=== PATIENT | female | born 1940 | race Caucasian/White ===

== ENCOUNTER → 2016-08-11 | Outpatient (CLI) | payer MEDICARE, BC ==
[~2016-08-11] MED LIST: ALEVE 220MG220 MG PO; ASPIRIN 81M81 MG/TA2 PO; HORIZANT600 MG PO; HYGROTON 2525 MG/TAB PO; MONOPRIL20 MG PO; NEURONTIN100 MG/CAP PO; NEURONTIN400 MG/CAP PO; NEXIUM 20MG20 MG PO; PAMELOR 25MG25 MG PO; PAMELOR50 MG PO
== END ==
LOC: MC.RAD 09:17
DX: Z12.31 Encounter for screening mammogram for malignant neoplasm of breast (principal); D24.2 Benign neoplasm of left breast; N63 Unspecified lump in breast

== ENCOUNTER → 2016-08-13 | Outpatient (CLI) | payer MEDICARE, BC | LOC: MC.RAD 12:52 | DX: N63 Unspecified lump in breast (principal); N60.01 Solitary cyst of right breast ==

== ENCOUNTER 2016-12-09 08:50 | Observation (INO) | payer MEDICARE, BC ==
[2016-12-09] VITALS (22 sets, daily range): BP systolic 100–1226; BP diastolic 58–81; PULSE 62–85; TEMP 97.6–98.2
[~2016-12-09] VITALS: Ht 154.9 cm; Wt 78.1 kg
[2016-12-10 03:08] VITALS: BP 124/69; PULSE 76; TEMP 97.5
[2016-12-10 08:52] VITALS: BP 115/64; PULSE 65; TEMP 96.9
[2016-12-10 10:57] VITALS: BP 108/52; PULSE 64; TEMP 96.7
[2016-12-10 14:56] VITALS: BP 98/51; PULSE 68; TEMP 97.4
[2016-12-10 20:56] VITALS: BP 92/46; PULSE 87; TEMP 98.4
[2016-12-10 23:58] VITALS: BP 94/51; PULSE 59; TEMP 97.4
[2016-12-11 03:06] VITALS: BP 88/46; PULSE 70; TEMP 98.1
[2016-12-11 04:23] VITALS: BP 105/51; PULSE 70
[2016-12-11 07:26] VITALS: BP 109/50; PULSE 73; TEMP 98.5
== END 2016-12-11 10:55 | disposition home or self-care (01) ==
LOC: COL.RAD 08:50 → MEDICAL 13:21
DX: C78.01 Secondary malignant neoplasm of right lung (principal); C52 Malignant neoplasm of vagina; J95.811 Postprocedural pneumothorax; T81.82XA Emphysema (subcutaneous) resulting from a procedure, initial encounter; I10 Essential (primary) hypertension
CPT/HCPCS: G0378; G0379; J2250; J3010; J7040

== ENCOUNTER → 2018-02-23 | Outpatient (CLI) | payer MEDICARE, BC | LOC: COL.VAS 09:56 | DX: M79.89 Other specified soft tissue disorders (principal) ==

== ENCOUNTER 2018-03-17 11:58 | Outpatient (CLI) | payer MEDICARE, BC ==
[~2018-03-17] VITALS: Ht 152.4 cm; Wt 83.0 kg
[2018-03-17 12:25] VITALS: BP 160/78; PULSE 69; TEMP 97.7
[2018-03-17] MEDS ORDERED: CYMBALTA 60MG60 MG PO (14:03)
[2018-03-17] MEDS ORDERED: SYNTHROID0.088 MG/T PO (14:04)
[2018-03-17 14:37] VITALS: BP 159/73; PULSE 66; TEMP 98.6
== END 2018-03-17 16:10 | disposition home or self-care (01) ==
LOC: EUO 11:58
DX: C43.9 Malignant melanoma of skin, unspecified (principal); C78.01 Secondary malignant neoplasm of right lung
CPT/HCPCS: J2405; J7030

== ENCOUNTER → 2018-10-27 | Outpatient (CLI) | payer MEDICARE, BC ==
[~2018-10-27] VITALS: Ht 152.4 cm; Wt 102.3 kg
[~2018-10-27] MED LIST changes: +CYMBALTA 60MG60 MG PO; +SYNTHROID0.088 MG/T PO
[2018-10-27 15:28] VITALS: BP 146/56; PULSE 80; TEMP 97.9
== END ==
LOC: EUO 14:30
DX: C34.90 Malignant neoplasm of unspecified part of unspecified bronchus or lung (principal); R11.2 Nausea with vomiting, unspecified
CPT/HCPCS: J2405; J7030

== ENCOUNTER → 2019-08-17 | Outpatient (CLI) | payer MEDICARE, BC | END | disposition still patient (30) | LOC: COL.RAD 09:07 | DX: C43.9 Malignant melanoma of skin, unspecified (principal); R91.1 Solitary pulmonary nodule | CPT/HCPCS: Q9967 ==

== ENCOUNTER → 2019-12-08 | Outpatient (CLI) | payer MEDICARE, BC | LOC: COL.RAD 11-17 08:30 | DX: C43.9 Malignant melanoma of skin, unspecified (principal); R91.1 Solitary pulmonary nodule | CPT/HCPCS: Q9967 ==

== ENCOUNTER → 2020-01-04 | Outpatient (CLI) | payer MEDICARE, BC | LOC: JCC 10-17 12:30 → COL.LAB 08:00 → JCC 01-11 07:30 → EDSTATUS 01-11 12:30 → JCC 01-11 12:30 | DX: Z01.812 Encounter for preprocedural laboratory examination (principal); Z20.828 Contact with and (suspected) exposure to other viral communicable diseases ==

== ENCOUNTER → 2020-04-04 | Outpatient (CLI) | payer MEDICARE, BC | LOC: COL.RAD 09:47 | DX: C43.9 Malignant melanoma of skin, unspecified (principal); R91.1 Solitary pulmonary nodule | CPT/HCPCS: Q9967 ==

== ENCOUNTER → 2020-08-22 | Outpatient (CLI) | payer MEDICARE, BC | LOC: COL.RAD 09:26 | DX: C43.9 Malignant melanoma of skin, unspecified (principal); R91.1 Solitary pulmonary nodule; S32.592A Other specified fracture of left pubis, initial encounter for closed fracture; Z96.643 Presence of artificial hip joint, bilateral | CPT/HCPCS: Q9967 ==

== ENCOUNTER 2020-09-18 12:12 | Inpatient (IN) | payer MEDICARE, BC ==
[~2020-09-18] VITALS: Ht 152.4 cm; Wt 82.4 kg
[2020-09-18 12:30] LABS: BASO # 0.1 (0.0-0.2); BASO % 0.3 % (0.0-2.0); EOS # 0.1 (0.0-0.7); EOS % 0.7 % (0-4.0); GRAN # 14.3 (1.4-6.5); GRAN % 87.6 % (42.2-75.2); HEMATOCRIT 27.4 % (37.0-47.0); HEMOGLOBIN 8.8 g/dl (12.5-16.0); LYMPH # 0.9 (1.2-3.4); LYMPH % 5.3 % (20.0-51.0); MEAN CELL VOLUME 85 fl (80.0-100.0); MEAN CORPUSCULAR HEMOGLOBIN 27 pg (27.0-31.0); MEAN CORPUSCULAR HGB CONC 32 g/dl (33.0-37.0); MEAN PLATELET VOLUME 8.7 fl (7.4-10.4); MONO # 0.8 (0.1-0.6); MONO % 4.8 % (1.7-9.3); PLATELET COUNT 625 K/mm3 (130-400); RED BLOOD COUNT 3.24 M/mm3 (4.10-5.30); REDCELL DISTRIBUTION WIDTH-CV 17.8 % (11.5-14.5)
[2020-09-18 12:41] LABS: ALANINE AMINOTRANSFERASE 11 U/L (4-34); ALBUMIN 2.5 gm/dL (3.5-5.0); ALKALINE PHOSPHATASE 71 U/L (50-136); ANION GAP 8 mmol/L (7-16); AST,SGOT 24 U/L (15-37); BILIRUBIN,TOTAL 0.4 mg/dL (0.0-1.0); BLOOD UREA NITROGEN 109 mg/dL (7-17); CALCIUM 7.5 mg/dL (8.4-10.2); CARBON DIOXIDE 16 mmol/L (22-30); CHLORIDE 110 mmol/L (98-107); CREATININE, serum 2.99 (0.52-1.25); GLUCOSE 97 mg/dL (74-106); POTASSIUM 4.7 mmol/L (3.4-5.0); SODIUM 134 mmol/L (137-145); TOTAL PROTEIN 5.3 gm/dL (6.4-8.2)
[2020-09-18 12:51] LABS: TROPONIN-I < 0.012 ng/mL (0.000-0.035)
[2020-09-18 12:52] LABS: C-REACTIVE PROTEIN 15.8 mg/dL (0.0-0.9)
[2020-09-18 13:47] LABS: COLLECTION METHOD CLEAN CATCH
[2020-09-18 14:01] LABS: BUDDING YEAST Present /hpf; PH 7 (5-8); SQUAMOUS EPITHELIAL None Seen /hpf; URINE APPEARANCE Hazy; URINE BACTERIA Rare /hpf; URINE BILIRUBIN Negative (NEGATIVE); URINE BLOOD 2+ (NEGATIVE); URINE COLOR Yellow; URINE GLUCOSE Negative (NEGATIVE); URINE KETONE Negative (NEGATIVE); URINE LEUKOCYTE ESTERASE 2+ (NEGATIVE); URINE NITRATE Positive (NEGATIVE); URINE PROTEIN(semi-quant) 1+ (NEGATIVE); URINE UROBILINOGEN Negative (NEGATIVE)
[2020-09-18 18:31] VITALS: BP 144/110; BP 88/45; PULSE 73; TEMP 98.2
--- NOTE | 2020-09-18 18:48 | NUR ---
BEDSIDE REPORT GIVEN TO RICARDO FARAH. PATIENT LAYING IN BED RESTING. CALL LIGHT WITHIN REACH. BED IN LOWEST POSITION. BED ALARM ON.
[2020-09-18 19:16] VITALS: BP 95/43; PULSE 86; TEMP 97.7
[2020-09-18 19:24] LABS: CREATININE, serum 1.9 (0.52-1.25)
--- NOTE | 2020-09-18 19:40 | NUR ---
WEN Alexander notified of patients sodium level. New order noted.
[2020-09-18 20:37] LABS: HEMATOCRIT 23.1 % (37.0-47.0); HEMOGLOBIN 7.3 g/dl (12.5-16.0)
--- NOTE | 2020-09-18 21:30 | NUR ---
WEN REECE, NOTIFIED OF PATIENTS HGB OG 7.3.
[2020-09-18 23:32] VITALS: BP 101/39; PULSE 77; TEMP 98.2
[2020-09-19] VITALS (7 sets, daily range): BP systolic 95–142; BP diastolic 44–70; PULSE 70–80; TEMP 97.6–97.8
[2020-09-19 04:21] LABS: BASO % 0.3 % (0.0-2.0); EOS # 0.2 (0.0-0.7); GRAN # 12.9 (1.4-6.5); GRAN % 84.4 % (42.2-75.2); LYMPH # 1.1 (1.2-3.4); LYMPH % 7.1 % (20.0-51.0); MEAN CELL VOLUME 87 fl (80.0-100.0); MEAN CORPUSCULAR HGB CONC 31 g/dl (33.0-37.0); MEAN PLATELET VOLUME 8.7 fl (7.4-10.4); MONO # 0.9 (0.1-0.6); MONO % 5.8 % (1.7-9.3); PLATELET COUNT 616 K/mm3 (130-400)
[2020-09-19 04:22] LABS: HEMATOCRIT 27.7 % (37.0-47.0); HEMOGLOBIN 8.6 g/dl (12.5-16.0); MEAN CORPUSCULAR HEMOGLOBIN 27 pg (27.0-31.0)
[2020-09-19 05:04] LABS: ALBUMIN 2.5 gm/dL (3.5-5.0); BILIRUBIN,TOTAL 0.4 mg/dL (0.0-1.0); CALCIUM 7.7 mg/dL (8.4-10.2); CREATININE, serum 2.27 (0.52-1.25); POTASSIUM 4.9 mmol/L (3.4-5.0); TOTAL PROTEIN 5.4 gm/dL (6.4-8.2)
--- NOTE | 2020-09-19 10:15 | NUR ---
SW met with the patient to discuss discharge plan. The patient lives in [place] with her , Dilan (ph#[phone]). She reports independence with ADLs and has a walker. The patient's PCP is Dr. Meli Guadarrama and she receives her medications from [facility]. She reports no difficulties obtaining her meds. The patient does not have a DPOA-HC in EMR, but she states that she does have one completed and that it designates her and then daughter, Ebonie. The patient plans to return home with her upon discharge. SW discussed home health and it's benefits. The patient states that she is not interested in home health at this time. CIARA contacted and reviewed the above information with her , Jack. Jack had no concerns with the patient returning home upon discharge. SW to follow as needed.
--- NOTE | 2020-09-19 11:39 | NUR ---
Pt assessment completed and charted. Pt sitting in recliner. Pt had LAC IV that had drainage, unable to redress and secure. IV removed, cath tip intact. I called Kendra CARVER to inform about pt being hard stick, unable to find IV access. PICC order placed. Awaiting MIKAYLA Haskins, to place PICC. Pt on room air, breathing is even ad unlabored, LS cta, HRRR. Pt assisted to bathroom w/ walker. Unable to collect stool sample, will collect next one. Pt did have small brown loose stool. Pt remains on CDIFF precautions until sample collected. No further needs at this time.
--- NOTE | 2020-09-19 14:16 | NUR ---
Pt currently having PICC line placed.
[2020-09-19 19:10] LABS: CALCIUM 7.6 mg/dL (8.4-10.2); POTASSIUM 4.5 mmol/L (3.4-5.0)
--- NOTE | 2020-09-19 20:00 | NUR ---
Paient assessed at this time. Alert and oriented to self. Confusion on time, place, and situation. Easily redirected, but forgetful. Denies having pain and discomfort. Double lumen PICC to RUE. Fluids running per orders. Denies having SOB and dyspnea. LS CTA in upper lobes, diminished in lower. Respirations even and unlabored. HRR. Telemetry in place. Capillary refill less than 3 seconds. Non-tenting skin turgor. BSAx4. Abdomen soft and non-tender. 1+ edema BLE. Bruising BUE. Voices no questions, needs, or concerns at this time. Resting in bed with call light within reach.
[2020-09-20 03:09] VITALS: BP 126/50; PULSE 81; TEMP 97.7
--- NOTE | 2020-09-20 05:45 | NUR ---
Patient has been resting in bed with call light within reach. Does not make needs known due to confusion. Bed alarm notifies staff when patient is getting up to go to the bathroom. Voices no questions, needs, or concerns at this time.
[2020-09-20 06:56] LABS: CALCIUM 7.6 mg/dL (8.4-10.2); CREATININE, serum 1.79 (0.52-1.25); POTASSIUM 4.3 mmol/L (3.4-5.0)
[2020-09-20 07:02] LABS: MEAN CELL VOLUME 88 fl (80.0-100.0); MEAN CORPUSCULAR HGB CONC 31 g/dl (33.0-37.0); MEAN PLATELET VOLUME 8.7 fl (7.4-10.4); PLATELET COUNT 571 K/mm3 (130-400); RED BLOOD COUNT 2.87 M/mm3 (4.10-5.30); REDCELL DISTRIBUTION WIDTH-CV 18.3 % (11.5-14.5)
[2020-09-20 07:04] LABS: HEMATOCRIT 25.1 % (37.0-47.0); HEMOGLOBIN 7.7 g/dl (12.5-16.0); MEAN CORPUSCULAR HEMOGLOBIN 27 pg (27.0-31.0)
--- NOTE | 2020-09-20 07:28 | NUR ---
BEDSIDE REPORT RECIEVED FROM RICARDO HANCOCK. PATIENT CURRENTLY RESTING IN THEIR BED. PATIENT DOES NOT C/O ANY PAIN AT THIS TIME. PATIENT DENIES ANY NEEDS AT THIS TIME. WILL CONTINUE TO MONITOR. BED IN LOWEST POSITION. BED ALARM ON. CALL LIGHT WITHIN REACH.
[2020-09-20 07:52] LABS: ANISOCYTOSIS 2+; EOSINOPHIL 3 % (0-4); LYMPHOCYTE 9 % (20.0-51.0); NEUTROPHILS 80 % (42.0-75.2); PLATELET ESTIMATE INCREASED (NORMAL)
[2020-09-20 07:53] LABS: HYPOCHROMIA 3+; OVALOCYTES 1+; POIKILOCYTOSIS 1+
[2020-09-20 08:38] VITALS: BP 143/92; PULSE 71; TEMP 97.7
--- NOTE | 2020-09-20 09:31 | NUR ---
PT/OT are recommending home health vs post-acute rehab. SW met with the patient to discuss their recommendation. The patient states that she is not going to any rehab. She states that she is well equiped at home with her and daughter and does not want any home health either. SW discussed home health's benefits. The patient refused home health. CIARA attempted to contact the patient's , Dilan. His phone states that he on another line at this time. CIARA left him a voicemail.
[2020-09-20 10:02] LABS: CLOSTRIDIUM DIFF A/B POS; CLOSTRIDIUM DIFF A/B INTERP Toxigenic C.diff POS
[2020-09-20 11:08] VITALS: BP 124/53; PULSE 73; TEMP 97.7
--- NOTE | 2020-09-20 11:30 | NUR ---
PATIENT CURRENTLY SITTING UP IN BED EATING LUNCH. PATIENT DOES NOT C/O N/V OR PAIN AT THIS TIME. WILL CONTINUE TO MONITOR. BED IN LOWEST POSITION. BED ALARM ON. CALL LIGHT WITHIN REACH.
[2020-09-20 15:15] VITALS: BP 141/71; PULSE 67; TEMP 97.7
--- NOTE | 2020-09-20 17:52 | NUR ---
Patient is currently sitting up in bed eating. is at the bedside. All scheduled meds are given. Patient C/O of no pain at this time. Patient denies any further needs at this time. Will continue to monitor. Bed in lowest positon. Bed alarm on. Call light within reach.
--- NOTE | 2020-09-20 19:10 | NUR ---
Patient assessed at this time. Alert and oriented, with intermittent confusion. Denies having pain and discomfort at this time. Double lumen PICC to RUE. Fluids running per orders. Denies SOB and dypsnea. LS CTA. Respirations even and unlabored. HRR. Telemetry in place Capillary refill less than 3 seconds. Non-tenting skin turgor. BSAx4. Abdomen soft and non-tender. 1+ edema BLE. Continues on contact isolation for C-diff per protocol. high fall risk precautions in place. Voices no questions, needs, or concerns at this time. Resting in bed with call light within reach.
[2020-09-20 19:11] VITALS: BP 147/60; PULSE 66; TEMP 97.6
[2020-09-20 20:15] LABS: CLOSTRIDIUM DIFF A/B NEG; CLOSTRIDIUM DIFF A/B INTERP No C.diff present
[2020-09-20 23:21] VITALS: BP 143/53; PULSE 72; TEMP 97.7
[2020-09-21 03:18] VITALS: BP 149/86; PULSE 81; TEMP 97.9
--- NOTE | 2020-09-21 06:14 | NUR ---
Patient has been resting in bed with call light within reach. Continues on contact precautions per protocol. High fall risk precautions in place. Voices no questions, needs, or concerns at this time.
--- NOTE | 2020-09-21 07:10 | NUR ---
Patient resting in bed at this time. NS running at 100 ml/hr via PICC line in patient's right upper arm. Patient does not C/O of any pain or discomfort at this time. Patient denies any needs at this time. Will continue to monitor. Bed in lowest position. Bed alarm on. Call light within reach.
[2020-09-21 07:27] LABS: BASO # 0.1 (0.0-0.2); BASO % 0.7 % (0.0-2.0); EOS # 0.2 (0.0-0.7); GRAN # 5.2 (1.4-6.5); GRAN % 70.4 % (42.2-75.2); LYMPH # 1.1 (1.2-3.4); LYMPH % 14.5 % (20.0-51.0); MEAN CELL VOLUME 87 fl (80.0-100.0); MEAN CORPUSCULAR HGB CONC 31 g/dl (33.0-37.0); MEAN PLATELET VOLUME 8.8 fl (7.4-10.4); MONO # 0.6 (0.1-0.6); MONO % 7.7 % (1.7-9.3); PLATELET COUNT 534 K/mm3 (130-400); RED BLOOD COUNT 2.96 M/mm3 (4.10-5.30); REDCELL DISTRIBUTION WIDTH-CV 18.1 % (11.5-14.5)
[2020-09-21 07:29] LABS: HEMATOCRIT 25.7 % (37.0-47.0); MEAN CORPUSCULAR HEMOGLOBIN 27 pg (27.0-31.0)
[2020-09-21 07:44] LABS: ALBUMIN 2.2 gm/dL (3.5-5.0); BILIRUBIN,TOTAL 0.2 mg/dL (0.0-1.0); CALCIUM 7.4 mg/dL (8.4-10.2); CREATININE, serum 1.39 (0.52-1.25); POTASSIUM 4.3 mmol/L (3.4-5.0); TOTAL PROTEIN 4.8 gm/dL (6.4-8.2)
[2020-09-21 09:00] VITALS: BP 128/55; PULSE 72; TEMP 98
[2020-09-21] MEDS ORDERED: OMNICEF 300MG300 MG PO (10:09)
[2020-09-21] MEDS ORDERED: TYLENOL 325MG325 MG PO (10:09)
[2020-09-21] MEDS ORDERED: ZOFRAN ODT4 MG PO (10:12)
[2020-09-21] MEDS ORDERED: SODIUM BICARBO650 MG PO (10:12)
[2020-09-21] MEDS ORDERED: DIFLUCAN 100MG100 MG PO (10:14)
[2020-09-21] MEDS ORDERED: VANCOCIN H125 MG/CAP PO (10:15)
--- NOTE | 2020-09-21 11:09 | NUR ---
DISCHARGE TEACHING COMPLETED. PATIENT AND SPOUSE VERBALIZED AN UNDERSTANDING OF THE TEACHING. DENIED HAVING ANY FURTHER QUESTIONS. PATIENT FIT FOR DISCHARGE.
--- NOTE | 2020-09-21 12:09 | NUR ---
The patient is ready to d/c today. CIARA met with the patient and her , Dilan, to review plan. Dilan reports that they have everything that the patient needs and does not any concerns with the patient returning back home. CIARA presented and read the IM form outloud to Dilan. Dilan verbalized understanding and gave CIARA approval to sign the form his behalf. He declined a copy. No additional needs at this time.
--- NOTE | 2020-09-21 12:14 | NUR ---
PATIENT DISCHARGED. PATIENT ESCORTED TO CAR VIA WHEELCHAIR BY [facility] STAFF.
== END 2020-09-21 12:00 | disposition home or self-care (01) | DRG 372 ==
LOC: COL.ER 12:12 → MEDICAL 15:24
PROVIDERS: Physician Assistant; ADMIT Internal Medicine
PROC: 02HV33Z Insertion of Infusion Device into Superior Vena Cava, Percutaneous Approach (ICD-10-PCS; principal; 2020-09-19)
DX: A04.72 Enterocolitis due to Clostridium difficile, not specified as recurrent (principal); N39.0 Urinary tract infection, site not specified; N17.9 Acute kidney failure, unspecified; E87.2 Acidosis; E87.0 Hyperosmolality and hypernatremia; I10 Essential (primary) hypertension; E03.9 Hypothyroidism, unspecified; K21.9 Gastro-esophageal reflux disease without esophagitis; G62.9 Polyneuropathy, unspecified; B37.9 Candidiasis, unspecified; D47.3 Essential (hemorrhagic) thrombocythemia; B96.1 Klebsiella pneumoniae [K. pneumoniae] as the cause of diseases classified elsewhere; D50.9 Iron deficiency anemia, unspecified; Z85.42 Personal history of malignant neoplasm of other parts of uterus; Z96.662 Presence of left artificial ankle joint; Z79.82 Long term (current) use of aspirin; Z20.822 Contact with and (suspected) exposure to COVID-19
CPT/HCPCS: 99223-AI; 99232-AI; 99233-AI; C1751; C9113; J0456; J0696; J7050; J7120

== ENCOUNTER → 2020-12-19 | Outpatient (CLI) | payer MEDICARE, BC ==
[~2020-12-19] MED LIST changes: +DIFLUCAN 100MG100 MG PO; +OMNICEF 300MG300 MG PO; +SODIUM BICARBO650 MG PO; +TYLENOL 325MG325 MG PO; +VANCOCIN H125 MG/CAP PO; +ZOFRAN ODT4 MG PO
== END ==
LOC: COL.RAD 09:50
DX: C52 Malignant neoplasm of vagina (principal); R91.1 Solitary pulmonary nodule
CPT/HCPCS: Q9967

== ENCOUNTER → 2021-05-08 | Outpatient (CLI) | payer MEDICARE, BC | LOC: COL.RAD 09:26 | DX: C43.9 Malignant melanoma of skin, unspecified (principal); R91.1 Solitary pulmonary nodule ==

== ENCOUNTER → 2022-05-30 | Outpatient (CLI) | payer MEDICARE, BC | LOC: COL.RAD 09:27 | DX: K44.9 Diaphragmatic hernia without obstruction or gangrene (principal); C43.9 Malignant melanoma of skin, unspecified | CPT/HCPCS: Q9967 ==

== ENCOUNTER → 2022-11-27 | Outpatient (REF) | payer MEDICARE, BC ==
[2022-11-27 13:49] LABS: BASOPHIL 1 % (0-2); EOSINOPHIL 3 % (0-4); LYMPHOCYTE 38 % (20.0-51.0); NEUTROPHILS 51 % (42.0-75.2); PLATELET ESTIMATE NORMAL (NORMAL)
== END ==
LOC: ZCOL.LAB 13:13
PROVIDERS: Family Medicine
DX: C43.9 Malignant melanoma of skin, unspecified (principal)